=== PATIENT | female | born 1985 | race Caucasian/White ===

== ENCOUNTER 2016-04-09 10:14 | Emergency (ER) | payer OTHER ==
[2016-04-09 11:04] VITALS: BP 136/104
--- NOTE | 2016-04-09 11:06 | UC ---
Ear Complaint HPI - HPI Summary HPI Summary: left ear congested and plugged ---has had sinus discmoft and ear pain for 5 days----is now getting worse - History of Current Complaint Chief Complaint: UCEar Stated Complaint: EAR PAIN PLUGGED Time Seen by Provider: 04/09/16 11:00 Hx Obtained From: Patient Hx Last Menstrual Period: 03/31/16 ?: No Onset/Duration: Lasting Days - 5, Still Present, Worse Since - today Severity Initially: Mild Severity Currently: Moderate Pain Intensity: 5 Pain Scale Used: 0-10 Numeric Aggravating Factors: Nothing - has been trying sudafed (advised to d/c do to increase bp) Alleviating Factors: Nothing Associated Signs/Symptoms: Positive: URI Symptoms - Allergies/Home Medications Allergies/Adverse Reactions: Allergies Allergy/AdvReac Type Severity Reaction Status Date / Time Latex Allergy Intermediate Hives Verified 04/09/16 10:59 PMH/Surg Hx/FS Hx/Imm Hx Previously Healthy: No Endocrine History Of: Denies: Diabetes, Thyroid Disease Cardiovascular History Of: Reports: Hypertension - ONLY DURING Denies: Cardiac Disorders Respiratory History Of: Denies: COPD, Asthma GI/ History Of: Denies: Ulcer Neurological History Of: Reports: Migraine - 4 PER MONTH- TREATS WITH EXCEDRINE MIGRAINE Psychological History Of: Reports: Anxiety - HX OF - NO MEDICATION FOR AT THIS TIME - Surgical History Surgical History: Yes Surgery Procedure, Year, and Place: SCOPING OF BLADDER A CHILD, TUBAL LIGATION - Family History Known Family History: Positive: Cardiac Disease, Hypertension, Diabetes - Social History Occupation: Employed Full-time Lives: With Family Alcohol Use: Occasionally Substance Use Type: None Smoking Status (MU): Former Smoker Amount Used/How Often: 5 CIGARETTES PER DAY X 1 YEAR Have You Smoked in the Last Year: No When Did the Patient Quit Smoking/Using Tobacco: 2-3 YEARS AGO - Immunization History Most Recent Influenza Vaccination: unkown Most Recent Tetanus Shot: 04/04/14 Most Recent Pneumonia Vaccination: none Review of Systems Constitutional: Chills, Fatigue Skin: Negative Eyes: Negative ENT: Ear Ache - left, Nasal Discharge Respiratory: Negative Cardiovascular: Negative Gastrointestinal: Negative Genitourinary: Negative Motor: Negative Neurovascular: Negative Musculoskeletal: Negative Neurological: Negative Psychological: Negative All Other Systems Reviewed And Are Negative: Yes Physical Exam Triage Information Reviewed: Yes Appearance: Well-Appearing, No Pain Distress Vital Signs: Initial Vital Signs Temp 97.9 F 04/09/16 10:59 Pulse 92 04/09/16 10:59 Resp 18 04/09/16 10:59 BP 136/104 04/09/16 10:59 Pulse Ox 99 04/09/16 10:59 Vital Signs Reviewed: Yes Eye Exam: Normal Eyes: Positive: Conjunctiva Clear ENT Exam: Normal ENT: Positive: Normal ENT inspection, Hearing grossly normal, Pharynx normal, Nasal congestion, Nasal drainage, TM dull - left. Negative: Tonsillar swelling , Tonsillar exudate, Trismus, Muffled/hoarse voice Dental Exam: Normal Neck exam: Normal Neck: Positive: Supple, Nontender, No Lymphadenopathy Respiratory Exam: Normal Respiratory: Positive: Chest non-tender, Lungs clear, Normal breath sounds, No respiratory distress, No accessory muscle use Cardiovascular Exam: Normal Cardiovascular: Positive: RRR, No Murmur, Pulses Normal, Brisk Capillary Refill Abdominal Exam: Normal Abdomen Description: Positive: Nontender, No Organomegaly, Soft Bowel Sounds: Positive: Present Musculoskeletal Exam: Normal Musculoskeletal: Positive: Strength Intact, ROM Intact, No Edema Neurological Exam: Normal Neurological: Positive: Alert, Muscle Tone Normal Psychological Exam: Normal Skin Exam: Normal Ear Complaint Course/Dx - Course Course Of Treatment: stop sudafed, flonase, Augmentin, increase fluids follow with pcp - Differential Dx/Diagnosis Differential Diagnosis/HQI/PQRI: Bronchitis, Cellulitis, Mastoiditis, Otitis Externa, Pharyngitis, URI Provider Diagnoses: Serrous otitis media, sinusitis Discharge - Discharge Plan Condition: Stable Disposition: HOME Prescriptions: Amoxicillin/Clavulanate TAB* [Augmentin TAB 875*] 875 mg PO BID #20 tab Fluticasone NASAL SPRAY 50MCG* [Flonase NASAL SPRAY 50MCG*] 2 spray BOTH NARES DAILY #1 btl Patient Education Materials: Sinusitis (ED), Serous Otitis Media (ED) Forms: *Work Release Referrals: Fidelina Seymour MD [Primary Care Provider] - If Needed
== END 2016-04-09 11:12 | disposition home or self-care (01) ==
LOC: UCEAST 10:14
DX: H65.92 Unspecified nonsuppurative otitis media, left ear (principal); J32.9 Chronic sinusitis, unspecified; Z87.891 Personal history of nicotine dependence
CPT/HCPCS: 99212; G0463

== ENCOUNTER 2016-06-19 14:58 | Emergency (ER) | payer OTHER ==
[2016-06-19 16:26] VITALS: BP 173/107
--- NOTE | 2016-06-19 16:36 | UC ---
Throat Pain/Nasal Dudley HPI - HPI Summary HPI Summary: SINUSITIS LAST MONTH; RESOLVED WITH ABX AND FLONASE; HOWEVER FOR LAST FIVE DAYS SYMPTOMS HAVE RETURNED - History of Current Complaint Chief Complaint: UCRespiratory Stated Complaint: SINUS CONGESTION,EAR PAIN Time Seen by Provider: 06/19/16 15:54 Hx Obtained From: Patient Hx Last Menstrual Period: May Onset/Duration: Gradual Onset, Lasting Days, Still Present Severity: Moderate Cough: Nonproductive Associated Signs & Symptoms: Positive: Hoarseness, Sinus Discomfort, Nasal Discharge - Epiglottits Risk Factors Epiglottis Risk Factors: Negative - Allergies/Home Medications Allergies/Adverse Reactions: Allergies Allergy/AdvReac Type Severity Reaction Status Date / Time Latex Allergy Intermediate Hives Verified 04/09/16 10:59 Home Medications: Home Medications Acetaminophen [Tylenol 8 Hour] 650 mg PO 06/19/16 [History] PMH/Surg Hx/FS Hx/Imm Hx Previously Healthy: Yes Endocrine History Of: Denies: Diabetes, Thyroid Disease Cardiovascular History Of: Reports: Hypertension - during Denies: Cardiac Disorders Respiratory History Of: Denies: COPD, Asthma GI/ History Of: Denies: Ulcer Neurological History Of: Reports: Migraine - 4 PER MONTH- TREATS WITH EXCEDRINE MIGRAINE Psychological History Of: Reports: Anxiety - HX OF - NO MEDICATION FOR AT THIS TIME - Surgical History Surgical History: Yes Surgery Procedure, Year, and Place: SCOPING OF BLADDER A CHILD, TUBAL LIGATION - Family History Known Family History: Positive: Cardiac Disease, Hypertension, Diabetes - Social History Occupation: Employed Full-time Lives: With Family Alcohol Use: Occasionally Substance Use Type: None Smoking Status (MU): Former Smoker Amount Used/How Often: 5 CIGARETTES PER DAY X 1 YEAR Have You Smoked in the Last Year: No When Did the Patient Quit Smoking/Using Tobacco: 2-3 YEARS AGO - Immunization History Most Recent Influenza Vaccination: unkown Most Recent Tetanus Shot: 04/04/14 Most Recent Pneumonia Vaccination: none Review of Systems Constitutional: Negative Skin: Negative Eyes: Negative ENT: Negative Respiratory: Negative Cardiovascular: Negative Gastrointestinal: Negative Genitourinary: Negative Motor: Negative Neurovascular: Negative Musculoskeletal: Arthralgia, Myalgia Neurological: Negative Psychological: Negative All Other Systems Reviewed And Are Negative: Yes Physical Exam Triage Information Reviewed: Yes Appearance: Well-Appearing, No Pain Distress, Well-Nourished Vital Signs: Initial Vital Signs Temp 97.4 F 06/19/16 15:35 Pulse 70 06/19/16 15:35 Resp 16 06/19/16 15:35 BP 165/107 06/19/16 15:35 Pulse Ox 100 06/19/16 15:35 Vital Signs Reviewed: Yes Eye Exam: Normal ENT: Positive: Normal ENT inspection, Hearing grossly normal, Nasal congestion, TM bulging, TM dull Dental Exam: Normal Neck exam: Normal Neck: Positive: Supple, Nontender, No Lymphadenopathy Respiratory Exam: Normal Respiratory: Positive: Chest non-tender, Lungs clear, Normal breath sounds, No respiratory distress, No accessory muscle use Cardiovascular Exam: Normal Cardiovascular: Positive: RRR, No Murmur, Pulses Normal Abdominal Exam: Normal Abdomen Description: Positive: Nontender, No Organomegaly Musculoskeletal Exam: Normal Musculoskeletal: Positive: Strength Intact, ROM Intact Neurological Exam: Normal Psychological Exam: Normal Psychological: Positive: Normal Response To Family Skin Exam: Normal Throat Pain/Nasal Course/Dx - Differential Dx/Diagnosis Differential Diagnosis/HQI/PQRI: Influenza, Sinusitis, Tonsillitis, URI Provider Diagnoses: SINUSITIS. HYPERTENSION: WILL FOLLOW UP WITH PCP NEXT WEEK Discharge - Discharge Plan Condition: Stable Disposition: HOME Prescriptions: Amoxicillin/Clavulanate TAB* [Augmentin TAB 875*] 875 mg PO BID #20 tab Fluticasone NASAL SPRAY 50MCG* [Flonase NASAL SPRAY 50MCG*] 2 spray BOTH NARES DAILY #1 btl Patient Education Materials: Sinusitis (ED) Forms: *Work Release Referrals: Fidelina Seymour MD [Primary Care Provider] -
== END 2016-06-19 16:30 | disposition home or self-care (01) ==
LOC: UCEAST 14:58
DX: J32.9 Chronic sinusitis, unspecified (principal); I10 Essential (primary) hypertension; Z87.891 Personal history of nicotine dependence
CPT/HCPCS: 99211; G0463

== ENCOUNTER 2016-07-20 15:54 | Emergency (ER) | payer OTHER ==
[2016-07-20 16:16] VITALS: BP 152/92
--- NOTE | 2016-07-20 16:55 | UC ---
Shoulder Pain HPI - HPI Summary HPI Summary: The patient comes in today for: 1. Right shoulder pain: Onset: 1-2 hours ago. Palliative/provocative: Movement makes it worse. Quality: Ache, burning Region: Right shoulder Severity: 6/10 with movement. No movement: 0/10 Time: Comes and goes. Associated symptoms: Numbness: None. Initially, when she first fell, she was not able to move it at all. It has gotten a bit better. * - History of Current Complaint Chief Complaint: UCUpperExtremity Stated Complaint: SHOULDER,ARM INJURY Time Seen by Provider: 07/20/16 16:47 Hx Obtained From: Patient Hx Last Menstrual Period: 06/28/16 - Allergies/Home Medications Allergies/Adverse Reactions: Allergies Allergy/AdvReac Type Severity Reaction Status Date / Time Latex Allergy Intermediate Hives Verified 04/09/16 10:59 PMH/Surg Hx/FS Hx/Imm Hx Previously Healthy: No Endocrine History Of: Denies: Diabetes, Thyroid Disease, Hyperthyroidism, Hypothyroidism, Dyslipidemia Cardiovascular History Of: Reports: Hypertension - during ; currently being followed by PCP Denies: Cardiac Disorders, Pacemaker/ICD, Myocardial Infarction, Congestive Heart Failure, Atrial Fibrillation, Deep Vein Thrombosis, Bleeding Disorders Respiratory History Of: Reports: Asthma Denies: COPD, Bronchitis, Pneumonia, Pulmonary Embolism GI/ History Of: Denies: Gastroesophageal Reflux, Ulcer, Gastrointestinal Bleed, Gall Bladder Disease, Kidney Stones, Diverticulitis, Renal Disease, Urosepsis Neurological History Of: Reports: Migraine - 4 PER MONTH- TREATS WITH EXCEDRINE MIGRAINE Denies: TIA, CVA, Dementia, Seizures Psychological History Of: Reports: Anxiety - HX OF - NO MEDICATION FOR AT THIS TIME Denies: Depression, Bipolar Disorder, Schizophrenia, Post Traumatic Stress Disorder Cancer History Of: Denies: Lung Cancer, Colorectal Cancer, Breast Cancer, Prostate Cancer, Cervical Cancer Other History Of: Negative For: HIV, Hepatitis B, Hepatitis C, Anticoagulant Therapy - Surgical History Surgical History: Yes Surgery Procedure, Year, and Place: SCOPING OF BLADDER A CHILD, TUBAL LIGATION - Family History Known Family History: Positive: Cardiac Disease, Hypertension, Diabetes - Social History Occupation: Employed Full-time Alcohol Use: Occasionally Substance Use Type: None Smoking Status (MU): Former Smoker Amount Used/How Often: 5 CIGARETTES PER DAY X 1 YEAR Have You Smoked in the Last Year: No When Did the Patient Quit Smoking/Using Tobacco: 2-3 YEARS AGO - Immunization History Most Recent Influenza Vaccination: unkown Most Recent Tetanus Shot: 04/04/14 Most Recent Pneumonia Vaccination: none Review of Systems Constitutional: Negative Skin: Negative Eyes: Negative ENT: Negative Respiratory: Negative Gastrointestinal: Negative Genitourinary: Negative Musculoskeletal: Arthralgia, Myalgia All Other Systems Reviewed And Are Negative: Yes Physical Exam Triage Information Reviewed: Yes Appearance: Well-Appearing, No Pain Distress - when not moving her arm., Obese Vital Signs: Initial Vital Signs Temp 98.7 F 07/20/16 16:11 Pulse 82 07/20/16 16:11 Resp 16 07/20/16 16:11 BP 152/92 07/20/16 16:11 Pulse Ox 99 07/20/16 16:11 Eyes: Positive: Conjunctiva Clear. Negative: Discharge ENT: Positive: Hearing grossly normal. Negative: Pharyngeal erythema, Nasal congestion, Nasal drainage, TM bulging, TM dull, TM red, Tonsillar swelling, Tonsillar exudate Dental: Negative: Gross Decay/Caries @, Dental Fracture @ Neck: Positive: Supple, Nontender, No Lymphadenopathy. Negative: Nuchal Rigidity Respiratory: Positive: Lungs clear, No respiratory distress, No accessory muscle use. Negative: Crackles, Wheezing Cardiovascular: Positive: RRR, No Murmur Abdomen Description: Positive: Nontender, No Organomegaly, Soft. Negative: Distended, Guarding, Peritoneal Signs Musculoskeletal: Positive: No Edema, ROM Limited @, Other: - PUlses (radial) 2+/ 2 x 2. No ecchymosis or distortion of anatomy. There is tenderness with palpation along the clavicle and around the coracoid process. There is limited movement of her arm. No swelling. Neurological: Positive: Alert, Muscle Tone Normal Psychological: Positive: Age Appropriate Behavior, Consolable Skin: Negative: rashes, breakdown Diagnostics - Radiology No standard instances Xray Interpretation: No Acute Changes Radiology Interpretation Completed By: ED Physician Shoulder Course/Dx - Course Course Of Treatment: Patient was told that I did not see any problems. The radiologist has not read it after a time, so the patient was given the option of leaving which she wanted to do. - Differential Dx/Diagnosis Provider Diagnoses: Right shoulder strain. Discharge - Discharge Plan Condition: Stable Disposition: HOME Patient Education Materials: Shoulder Sprain (ED) Referrals: Fidelina Seymour MD [Primary Care Provider] - 1 Week (Please see your primary care provider in a week to see how well you are doing. If you get worse, please be seen sooner in the ER or through us.) Frederick Don MD [Medical Doctor] - Additional Instructions: Please wear the sling while up and around. If tolerated, you may have it off at night when sleeping. Please see your primary care provider next week to see how well you are doing. IF you get worse, please be seen again by us or the ER. IF you need an orthopedic surgeon referral, please contact the patient listed.
--- NOTE | 2016-07-20 18:16 | RAD ---
Indication: Right shoulder pain after fall. 3 views of the right shoulder demonstrates AC joint widening. Possibility of AC joint separation should be considered. The humeral head is otherwise unremarkable with no fracture. IMPRESSION: Findings suggestive of AC joint separation without fracture.
--- NOTE | 2016-07-20 18:17 | RAD ---
Indication: Clavicle injury. 2 views of the right clavicle demonstrates AC joint separation. No definite fracture of the clavicle is identified however. IMPRESSION: No fracture of the right clavicle is noted. AC joint separation is present.
== END 2016-07-20 18:11 | disposition home or self-care (01) ==
LOC: UCEAST 15:54
DX: S46.811A Strain of other muscles, fascia and tendons at shoulder and upper arm level, right arm, initial encounter (principal); W18.30XA Fall on same level, unspecified, initial encounter; F17.290 Nicotine dependence, other tobacco product, uncomplicated
CPT/HCPCS: 99212; G0463

== ENCOUNTER 2017-08-29 10:18 | Emergency (ER) | payer SELFPAY ==
[2017-08-29 10:32] VITALS: BP 142/90
--- NOTE | 2017-08-29 10:58 | UC ---
Garcia Escobedo Angela, scribed for Gabriel Kraft MD on 08/29/17 at 1033 . Ear Complaint HPI - HPI Summary HPI Summary: This pt is a 32 y/o female presenting to [facility] c/o bilateral ear pain today. Pt reports she woke up at 03:00 this morning with left ear pain. She states that her pain has worsened and now has bilateral ear pain. Denies ear discharge, hearing loss, foreign body sensation, or trauma to her ears. Pt has tried over the counter ear drops and netti pot without relief. PMHx: HTN. - History of Current Complaint Stated Complaint: EAR PAIN Time Seen by Provider: 08/29/17 10:21 Hx Obtained From: Patient Hx Last Menstrual Period: 08/15/17 Onset/Duration: Lasting Hours, Still Present Severity Currently: Severe Pain Intensity: 8 Pain Scale Used: 0-10 Numeric Aggravating Factors: Nothing Alleviating Factors: Nothing Associated Signs/Symptoms: Negative: Discharge, Hearing Loss, Foreign Body Sensation, Trauma to Ear - Allergies/Home Medications Allergies/Adverse Reactions: Allergies Allergy/AdvReac Type Severity Reaction Status Date / Time latex Allergy Hives Verified 08/29/17 10:26 Latex, Natural Rubber Allergy Hives Verified 08/29/17 10:26 Home Medications: Home Medications Ibuprofen TAB* [Advil TAB*] 400 mg PO Q6HR PRN 08/29/17 [History Confirmed 08/29] hydroCHLOROthiazide [Hydrochlorothiazide] 1 tab PO DAILY 08/29/17 [History Confirmed 08/29/17] PMH/Surg Hx/FS Hx/Imm Hx Other Endocrine History: DENIES: diabetes Cardiovascular History: Hypertension Other History Of: Negative For: HIV, Hepatitis B, Hepatitis C, Anticoagulant Therapy - Surgical History Surgical History: Yes Surgery Procedure, Year, and Place: SCOPING OF BLADDER A CHILD, TUBAL LIGATION - Family History Known Family History: Positive: Cardiac Disease, Hypertension, Diabetes - Social History Alcohol Use: Occasionally Substance Use Type: None Smoking Status (MU): Former Smoker Amount Used/How Often: 5 CIGARETTES PER DAY X 1 YEAR Have You Smoked in the Last Year: No When Did the Patient Quit Smoking/Using Tobacco: 2-3 YEARS AGO - Immunization History Most Recent Influenza Vaccination: fall 2016 Most Recent Tetanus Shot: 04/04/14 Most Recent Pneumonia Vaccination: none Review of Systems Constitutional: Negative Skin: Negative Eyes: Negative ENT: Ear Ache - bilateral Respiratory: Negative Cardiovascular: Negative Gastrointestinal: Negative Genitourinary: Negative Motor: Negative Neurovascular: Negative Musculoskeletal: Negative Neurological: Negative Psychological: Negative Is Patient Immunocompromised?: No All Other Systems Reviewed And Are Negative: Yes Physical Exam - Summary Physical Exam Summary: VITAL SIGNS: Reviewed. GENERAL: Patient is a well-developed and nourished female who is lying comfortable in the stretcher. Patient is not in any acute respiratory distress. HEAD AND FACE: Normocephalic EYES: PERRLA, EOMI x 2. EARS: Hearing grossly intact. Bilateral tympanic membranes with erythema and bulging. MOUTH: Oropharynx within normal limits. NECK: Supple, trachea is midline, no adenopathy, no JVD, no carotid bruit. CHEST: Symmetric, no tenderness at palpation LUNGS: Clear to auscultation bilaterally. No wheezing or crackles. CVS: Regular rate and rhythm, S1 and S2 present, no murmurs or gallops appreciated. ABDOMEN: Soft, non-tender. Bowel sounds are normal. No abdominal abnormal pulsations. EXTREMITIES: Full ROM in all major joints, no edema, no cyanosis or clubbing. NEURO: Alert and oriented x 3. No acute neurological deficits. Speech is normal and follows commands. SKIN: Dry and warm Triage Information Reviewed: Yes Vital Signs: Initial Vital Signs Temp 98.3 F 08/29/17 10:28 Pulse 87 08/29/17 10:28 Resp 18 08/29/17 10:28 BP 142/90 08/29/17 10:28 Pulse Ox 97 08/29/17 10:28 Vital Signs Reviewed: Yes Ear Complaint Course/Dx - Course Course Of Treatment: The patient seems to have a bilateral otitis media. The patient was given ciprofloxacin otic and discharged home with follow-up with PCP. I discussed all the findings and test results with the patient and Patient was instructed to return to the UC or go to the ED if develops any fever, increase sore throat unable to swallow, drooling, unable to open their mouth, or any other symptoms. The patient understands and agrees. Plan of care was discussed with the patient and understands and agrees. All questions were answered at patient satisfaction. There were no further complaints or concerns. Patient is A + O X 3. hemodynamically stable. The patient was found to have increased blood pressure in UC. The patient will follow up with PCP for better control of BP. - Differential Dx/Diagnosis Differential Diagnosis/HQI/PQRI: Cerumen Impaction, Otitis Externa, Otitis Media Provider Diagnoses: Otitis media Discharge - Sign-Out/Discharge Documenting (check all that apply): Discharge/Admit/Transfer - Discharge - Discharge Plan Condition: Stable Disposition: HOME Prescriptions: Ciproflox/Dexameth OTIC.SUSP* [Ciprodex OTIC.SUSP*] 1 drop .SEE ORDER Q12H #1 btl Patient Education Materials: Ear Infection (ED) Forms: *Work Release Referrals: Fidelina Seymour MD [Primary Care Provider] - Additional Instructions: FOLLOW UP WITH YOUR PRIMARY CARE PROVIDER WITHIN ONE WEEK FOR HIGH BLOOD PRESSURE NOTED TODAY. RETURN TO URGENT CARE OR THE ED FOR ANY WORSENING OR NEW SYMPTOMS. - Billing Disposition and Condition Condition: STABLE Disposition: HOME The documentation as recorded by the Garcia sterling Angela accurately reflects the service I personally performed and the decisions made by Swapnil okeefe Walter, MD.
== END 2017-08-29 10:42 | disposition home or self-care (01) ==
LOC: UCEAST 10:18
DX: H66.93 Otitis media, unspecified, bilateral (principal); I10 Essential (primary) hypertension; Z91.040 Latex allergy status; Z82.49 Family history of ischemic heart disease and other diseases of the circulatory system; Z83.3 Family history of diabetes mellitus; Z87.891 Personal history of nicotine dependence
CPT/HCPCS: 99212; G0463

== ENCOUNTER 2017-09-10 10:39 | Emergency (ER) | payer OTHER ==
--- OUTSIDE RECORDS SUMMARY | 2017-09-10 10:48 | XMS REPORT ---
:1985 External Reference #:[id number] Author Organization [facility] Address [address] [place] [address] Phone [phone] Care Team Providers Name Role Phone Fidelina Seymour M.D. Care Team Information Architectural Drafter Unavailable Fidelina Seymour M.D. Primary Care Physician Unavailable Payers Type Date Identification Numbers Payment Provider Subscriber Medicaid Effective: Policy Number: [id number] [facility] Krissy Aguiarup 2014 PayID: [id number] [address] [address] [place] [address] Problems Date Description Provider Status Onset: 09/24/2016 Essential hypertension Fidelina Seymour M.D. Active Onset: 09/24/2016 Impaired fasting glycaemia Fidelina Seymour M.D. Active Family History Date Family Member(s) Problem(s) Comments General No immediate family members with early CA or CVA. No immediate family history of colon, breast, ovarian, cervical or prostate cancer. Father Cluster headache Father Hypertension Mother Anxiety Mother Asthma Mother Depression Mother Hypertension First Son Deafness First Sister No Current Problems Paternal Grandfather Stroke Social History Type Date Description Comments Marital Status Patient is single Living Situation Lives with children Diet Diet is healthy and well balanced Cigarette Use Nonsmoker Cigarette Use Former Cigarette Smoker 18-23 years, smoked 1/2ppd ETOH Use Occasional Recreational Drug Use Denies Drug Use Smoking Patient is a former smoker Daily Caffeine Some Caffeine Exercise Type/Frequency walks regularly, 30 min Current cardio Allergies, Adverse Reactions, Alerts Date Description Reaction Status Severity Comments 09/24/2016 NKDA active 02/07/2015 Latex active Medications Medication Date Status Form Strength Qnty SIG Indications Ordering Provider Note 08/31 Hx pt was J06.9 Amira seen here Estrella, Cristine today for Afnp-C 09/01 uri and /2017 ear infection Amoxicillin 08/31 Hx Tablets 500mg 30tab 1 by H66.93 s mouth [facility], - three Afnp-C 09/10 times day Hydrochlorothiazi 07/01 Active Capsules 12.5mg 30cap 1 by I10 s mouth Amlin, every day M.D. Neomycin-Polymyxi Active Solution 1% 2 qtts in Unknown n-HC /0000 affected ear four times a day until sx resolve Blood Pressure 09/24 Hx take I10 Fidelina Cuff blood Amlin, - pressure M.D. 08/30 daily No Active 06/20 Hx Fidelina Medications Amlin, - M.D. 09/24 Cyclobenzaprine 04/13 Hx Tablets 5mg 30tab 03/31-1 M54.2 Fidelina HCL s tablet Amlin, - every M.D. 06/20 night at bedtime as needed Norgestim-Eth 02/07 Hx Tablets 0.18/0.21 3tabs Fidelina Estrad Triphasic 5/0.25 Amlin, - mg-35 mcg M.D. 06/20 Promethazine 01/16 Hx Tablets 25mg 0tabs 1 PO Q 4-6 [facility] 11/13 Of Cortisporin Otic 01/16 Hx Suspension 5mg;52705 1Bott 3-4 gtts 380.10 U;10mg/ML le into L Manisha, - ear tid x Afnp-C 01/21 Zoloft 10/21 Hx Tablets [facility] 02/07 Immunizations CPT Code Status Date Vaccine Lot # [id number] Given 02/01/2016 Influenza vac quadrivalent preservative free 3yrs and up [id number] Given 11/13/2009 Meningococcal Conjugate Vaccine,Serogroups For [id number] Intramuscular Use 18131 Given 11/13/2009 Tdap Tetanus, W Pertussis [id number] Vital Signs Date Vital Result Comment 08/31/2017 BP Systolic 140 mmHg BP Diastolic 92 mmHg Heart Rate 90 /min Body Temperature 97.7 F Height 62.5 inches 5'2.50" Weight 230.00 lb BMI (Body Mass Index) 41.4 kg/m2 07/01/2017 BP Systolic 140 mmHg BP Diastolic 90 mmHg Heart Rate 80 /min Body Temperature 98.4 F Weight 241.25 lb 02/04/2017 BP Systolic 128 mmHg BP Diastolic 78 mmHg Heart Rate 72 /min Body Temperature 98.6 F Height 62.5 inches 5'2.50" Weight 239.00 lb BMI (Body Mass Index) 43.0 kg/m2 09/24/2016 BP Systolic 142 mmHg BP Diastolic 92 mmHg BP Systolic Recheck 130 mmHg BP Diastolic Recheck 80 mmHg Heart Rate 78 /min Body Temperature 97.5 F Height 62.5 inches 5'2.50" Weight 231.50 lb BMI (Body Mass Index) 41.7 kg/m2 06/20/2016 BP Systolic 144 mmHg BP Diastolic 90 mmHg Heart Rate 80 /min Body Temperature 98.6 F Respiratory Rate 20 /min Height 62.5 inches 5'2.50" Weight 246.00 lb BMI (Body Mass Index) 44.3 kg/m2 04/13/2015 BP Systolic 142 mmHg BP Diastolic 80 mmHg Heart Rate 84 /min Body Temperature 98.4 F Respiratory Rate 16 /min Height 62.5 inches 5'2.50" Weight 229.00 lb BMI (Body Mass Index) 41.2 kg/m2 02/07/2015 BP Systolic 128 mmHg BP Diastolic 78 mmHg Heart Rate 84 /min Body Temperature 99.3 F Respiratory Rate 16 /min Height 62.5 inches 5'2.50" Weight 228.00 lb BMI (Body Mass Index) 41.0 kg/m2 11/13/2009 BP Systolic 110 mmHg BP Diastolic 72 mmHg Heart Rate 88 /min Height 62.75 inches 5'2.75" Weight 156.00 lb BMI (Body Mass Index) 27.9 kg/m2 01/16/2006 BP Systolic 100 mmHg BP Diastolic 60 mmHg Heart Rate 66 /min Body Temperature 98.7 F Weight 150.00 lb 10/21/2005 BP Systolic 110 mmHg BP Diastolic 80 mmHg Heart Rate 80 /min Body Temperature 98.8 F Height 62.75 inches 5'2.75" Weight 152.00 lb BMI (Body Mass Index) 27.1 kg/m2 Results Test Date Test Result H/L Range Note Laboratory test finding 07/01/2017 Cytology Thinprep SEE RESULT BELOW 1 w/rfx(cmc) Comprehensive Metabolic 05/06/2017 Sodium 138 mEq/L 134-149 Prof Potassium 4.1 mEq/L 3.6-5.5 Chloride 104 mEq/L 94-112 Carbon Dioxide 23 mEq/L 21-32 Glucose 113 mg/dL High 70-105 2 BUN 12 mg/dL 6-26 Creatinine 0.6 mg/dL 0.6-1.4 BUN/Creat Ratio 20.0 CALC 8.0-36.0 Calcium 8.6 mg/dL 8.6-10.2 Total Protein 6.5 g/dL 6.4-8.3 Albumin 4.3 g/dL 3.8-5.5 Globulin 2.2 g/dL 2.0-4.8 A/G Ratio 2.0 CALC 0.6-2.3 Alk. Phosphatase 71 U/L 30-110 Alt (SGPT) 33 U/L 7-35 Ast (Sgot) 25 U/L 5-34 Total Bilirubin 0.4 mg/dL 0.2-1.3 GFR Non- >60 ml/min/1.73m^ >=60 GFR >60 ml/min/1.73m^ >=60 Lipid Profile 05/06/2017 Cholesterol 129 mg/dL 120-200 Triglycerides 109 mg/dL 30-200 HDL Cholesterol 21 mg/dL Low 30-85 3 LDL (Calculated) 86 CALC 0-129 VLDL Cholesterol 22 mg/dL 0-50 HDL Risk Factor 6.1 CALC High 0.0-4.4 Complete Blood Count 05/06/2017 WBC 8.7 x10^3/UL 3.6-9.6 RBC 4.92 x10^6/UL 3.90-5.70 HGB 12.6 g/dL 12.1-17.2 HCT 39 % 36-50 MCV 79.0 fL Low 82.2-97.4 MCH 25.6 pg Low 27.6-33.3 MCHC 32.6 g/dL Low 33.0-35.5 RDW 16.4 % High 11.6-13.7 PLT 269 x10^3/UL 150-400 MPV 7.6 fL 7.4-10.4 Gran # 6.0 x10^3/UL 1.5-7.2 Lymph# 2.3 x10^3/UL 0.7-4.9 Major# 0.4 x10^3/UL 0.1-0.9 Gran % 68.8 % 42.2-75.2 Lymph % 26.5 % 20.5-51.1 Major% 4.7 % 1.7-9.3 Laboratory test finding 05/06/2017 Hemoglobin A1c (Fma) 5.5 % % 4.1-5.7 Comprehensive Metabolic Prof 06/23/2016 Sodium 142 mEq/L 134-149 Potassium 4.7 mEq/L 3.6-5.5 Chloride 105 mEq/L 94-112 Carbon Dioxide 24 mEq/L 21-32 Glucose 114 mg/dL High 70-105 4 BUN 15 mg/dL 6-26 Creatinine 0.7 mg/dL 0.6-1.4 BUN/Creat Ratio 21.4 CALC 8.0-36.0 Calcium 9.0 mg/dL 8.6-10.2 Total Protein 6.7 g/dL 6.4-8.3 Albumin 4.2 g/dL 3.8-5.5 Globulin 2.5 g/dL 2.0-4.8 A/G Ratio 1.7 CALC 0.6-2.3 Alk. Phosphatase 78 U/L 30-110 Alt (SGPT) 38 U/L High 7-35 5 Ast (Sgot) 28 U/L 5-34 Total Bilirubin 0.5 mg/dL 0.2-1.3 GFR Non- >60 ml/min/1.73m^ >=60 GFR >60 ml/min/1.73m^ >=60 Lipid Profile 06/23/2016 Cholesterol 131 mg/dL 120-200 Triglycerides 172 mg/dL 30-200 HDL Cholesterol 24 mg/dL Low 30-85 LDL (Calculated) 73 CALC 0-129 VLDL Cholesterol 34 mg/dL 0-50 HDL Risk Factor 5.5 CALC High 0.0-4.4 Laboratory test finding 06/23/2016 TSH 3.22 mIU/L 0.50-6.00 Complete Blood Count 06/23/2016 WBC 8.0 x10^3/UL 3.6-9.6 RBC 5.33 x10^6/UL 3.90-5.70 HGB 13.9 g/dL 12.1-17.2 HCT 43 % 36-50 MCV 80.0 fL Low 82.2-97.4 6 MCH 26.0 pg Low 27.6-33.3 7 MCHC 32.5 g/dL Low 33.0-35.5 8 RDW 16.0 % High 11.6-13.7 PLT 275 x10^3/UL 150-400 MPV 6.9 fL Low 7.4-10.4 Gran # 5.5 x10^3/UL 1.5-7.2 Lymph# 2.1 x10^3/UL 0.7-4.9 Major# 0.4 x10^3/UL 0.1-0.9 Gran % 68.2 % 42.2-75.2 Lymph % 26.3 % 20.5-51.1 Major% 5.5 % 1.7-9.3 Laboratory test 06/23/2016 Hemoglobin A1c (Fma) 5.4 % 4.1-5.7 finding Laboratory test 01/16/2006 Throat - Beta Strep NEGATIVE @ 48 HRS finding Fma Ua - Micro ([facility]) 01/16/2006 Appearance SL CLOUDY Color YELLOW Glucose NEG Bilirubin ICTO NEG Ketones NEG SP Grav >=1.030 Blood NEG LMP 01/04/06 PH 5.0 Protein, Random Urine SSA NEG Urobil 0.2 Nitrite NEG Leukocytes (Fma/CMC/Centrex) TRACE Hyaline - /Lpf Granular - /Lpf WBC, Fluid 3-5 RBC, Fluid 1-3 Mucus LG AMT /Lpf Epith LG AMT /Lpf Bacteria 2+ /Hpf Amorphous - /Lpf Crystals, Urine (Fma/CMC/CTX) - /Lpf Misc NOT A CLEAN CATCH Ua - Micro ([facility]) 10/21/2005 Appearance CLEAR Color YELLOW Glucose NEG Bilirubin ICTO NEG Ketones 40 SP Grav >=1.030 Blood NEG PH 5.5 Protein, Random Urine SSA TRACE Urobil 1.0 Nitrite NEG Leukocytes (Fma/CMC/Centrex) SMALL Hyaline - /Lpf Granular - /Lpf WBC, Fluid 30-40 SOME CLUMPED RBC, Fluid 3-5 Mucus SM AMT /Lpf Epith MOD AMT /Lpf Bacteria 3+ /Hpf Amorphous SMA AMT /Lpf Crystals, Urine (Fma/CMC/CTX) - /Lpf Z#Comments LMP EARLY AUGUST Urine (a) 10/21/2005 SP Grav >=1.030 Urine, (Fma/CMC/CTX) POSITIVE 1 SEE RESULT BELOW Name: KRISSY BRADLEY : [address]: Fidelina Seymour MD Acct: [id number] Unit: [id number] AGE: 32 Location: [facility] Re07/01/17 SEX: F Status: REG REF SPEC: [id number] ALEXANDER: 07/01/17-[address] [facility] [address]: Fidelina Seymour MD REQ: [id number] RECD: 07/01/17 STATUS: SOUT _ ORDERED: TP IMAGE ANAL, HPV/Thin Prep, HPV 16/18 GENE COMMENTS: [id number] Negative for Intraepithelial lesion or Malignancy A. Ectocervical/Endocervical Specimen Adequacy: Satisfactory of evaluation Transformation zone component identified Patient Information: HPV: High risk HPV RNA testing regardless of pap results. HPV 16/18 Genotype Reflex Actual Specimen Date: 07/01/17 LMP If Unknown: Last Menstrual Period Not Given. Spec Date if unknown: 2014 Previous Abnormal Pap Smears?:N Date Time Test Result Flag (u) Normal Range 07/01/17 1012 @ HPV RNA RFLX GE Negative Negative @ @ The high-risk HPV types detected by the assay include: 16, @ 18, 31, 33, 35, 39, 45, 51, 52, 56, 58, 59, 66, and 68. Signed (signature on file) DAVE Romero (ASCP) 07/03 1100 This Pap test was evaluated with the assistance of the [employer] Test Imaging System. Due to cytologic findings at the junior art director microscope, comprehensive manual rescreening by a Delivery Architect may be required. The Pap Smear is a screening test designed to aid in the detection of premalignant and malignant conditions of the uterine cervix. It is not a diagnostic procedure and should not be used as the sole means of detecting cervical cancer. Both false- positive and false- negative reports do occur. Depending on your risk status, a Pap smear should be obtained and evaluated every 1-3 years. END OF REPORT DEPARTMENT OF PATHOLOGY, [address] [place] [address] Elvis Ervin M.D. Director [facility] # [id number] 2 consistent w/ previous results 3 consistent w/ previous results 4 RESULTS VERIFIED BY REPEAT ANALYSIS 5 RESULTS VERIFIED BY REPEAT ANALYSIS 6 RESULTS VERIFIED BY REPEAT ANALYSIS 7 RESULTS VERIFIED BY REPEAT ANALYSIS 8 RESULTS VERIFIED BY REPEAT ANALYSIS Procedures Description No Information Encounters Type Date Location Provider CPT E/M Dx Office Visit 07/01/2017 9:20a [facility] Office Fidelina Seymour M.D. 76693 I10 R73.01 E66.9 Z00.01 K42.9 M25.561 Office Visit 09/24/2016 8:40a [facility] Office Fidelina Seymour M.D. 20279 R73.01 I10 E66.9 Office Visit 06/20/2016 11:40a [facility] Office Fidelina Seymour M.D. 17736 R03.0 E66.9 Office Visit 04/13/2015 10:00a [facility] Office Fidelina Seymour M.D. 94609 G43.009 M54.2 Office Visit 02/07/2015 2:30p [facility] Office Fidelina Seymour M.D. 53434 K42.0 E66.09 G43.009 Z00.01 Office Visit 11/13/2009 3:00p [facility] Office Marichuy Robles 15188 300.00 Office Visit 01/16/2006 10:45a [facility] Office Graciela DyerLashawn-Nilsa 27138 380.10 536.2 Office Visit 10/21/2005 9:00a [facility] Office Marichuy Robles 84162 787.01 V72.42 Plan of Care Future Appointment(s):10/06/2017 10:40 am - Fidelina Seymour M.D. at [facility] Tpdpsk2808/31/2017 - Lashawn Robles-CJ06.9 Acute upper respiratory infection, unspecifiedNew Medication:NoteH66.93 Otitis media, unspecified, bilateralNew Medication:Amoxicillin 500 mgAllComments:~B_~U_Medication Management~b_~u_ Patient Understands medications she's taking? Yes No Are there Barriers to Adherence? Yes No Has the patient been asked about herbal supplements and therapies, and OTC meds? Yes No ~B_~U_Care Plan~b_~u_1. Patient has been queried about patient's goals/preferences and functional/lifestyle goals at relevant visits. If relevant, describe: na2. Treatment goals as explained to the patient: aboveresolution of sx 3. Are there barriers to meeting treatment goals? Yes No If Yes, please describe:4. Self-Management goals as describedto the patient: Yes No continue sx management , ok to try afrin x 3 days , fluids and vapor callif no better with amoxl in 3 days of if sx worsen
[2017-09-10 10:51] VITALS: BP 138/93
--- NOTE | 2017-09-10 11:18 | ED ---
Throat Pain/Nasal Congestion - HPI Summary HPI Summary: 32-year-old female presents with pressure behind her ears for the past 2 weeks. States that a week ago she was diagnosed with otitis media and has been completing her antibiotic. She has been on an oral and a topical antibiotic. She states the pain has has disappeared a couple days ago it is just the pressure left. States she is on Flonase. She admits to sinus congestion. She also admits to some ringing in her ears. She states she is dizzy occasionally that is worse with positional changes. She denies any chest pain or shortness of breath. She admits to occasional headache. She denies any fevers. She denies any cough. <Yoly Siu - Last Filed: 09/10/17 11:27> <Kim Mccracken - Last Filed: 09/10/17 13:40> - History of Current Complaint Chief Complaint: UCEar Time Seen by Provider: 09/10/17 11:06 - Allergies/Home Medications Allergies/Adverse Reactions: Allergies Allergy/AdvReac Type Severity Reaction Status Date / Time latex Allergy Hives Verified 09/10/17 10:52 Latex, Natural Rubber Allergy Hives Verified 09/10/17 10:52 PMH/Surg Hx/FS Hx/Imm Hx Endocrine/Hematology History: Denies: Hx Anticoagulant Therapy, Hx Diabetes, Hx Thyroid Disease Cardiovascular History: Reports: Hx Hypertension Denies: Hx Congestive Heart Failure, Hx Deep Vein Thrombosis, Hx Myocardial Infarction, Hx Pacemaker/ICD Respiratory History: Denies: Hx Asthma, Hx Chronic Obstructive Pulmonary Disease (COPD), Hx Lung Cancer, Hx Pneumonia, Hx Pulmonary Embolism GI History: Denies: Hx Gall Bladder Disease, Hx Gastrointestinal Bleed, Hx Ulcer, Hx Urosepsis History: Reports: Other Problems/Disorders - [facility] all summer Denies: Hx Kidney Stones, Hx Renal Disease Sensory History: Reports: Hx Contacts or Glasses - GLASSES Denies: Hx Hearing Aid Opthamlomology History: Reports: Hx Contacts or Glasses - GLASSES Neurological History: Reports: Hx Migraine - 4 PER MONTH- TREATS WITH EXCEDRINE MIGRAINE Denies: Hx Dementia, Hx Seizures, Hx Transient Ischemic Attacks (TIA) Psychiatric History: Reports: Hx Anxiety - HX OF - NO MEDICATION FOR AT THIS TIME Denies: Hx Depression, Hx Schizophrenia, Hx Bipolar Disorder - Surgical History Surgery Procedure, Year, and Place: SCOPING OF BLADDER A CHILD, TUBAL LIGATION Hx Anesthesia Reactions: No - Immunization History Date of Influenza Vaccine: 2012 Infectious Disease History: No Infectious Disease History: Reports: Hx Shingles Denies: Hx Clostridium Difficile, Hx Hepatitis, Hx Human Immunodeficiency Virus (HIV), Hx of Known/Suspected MRSA, Hx Tuberculosis, Hx Known/Suspected VRE , Hx Known/Suspected VRSA, History Other Infectious Disease, Traveled Outside the [place] in Last 30 Days - Family History Known Family History: Positive: Cardiac Disease, Hypertension, Diabetes - Social History Alcohol Use: Occasionally Substance Use Type: Reports: None Smoking Status (MU): Former Smoker Amount Used/How Often: 5 CIGARETTES PER DAY X 1 YEAR Have You Smoked in the Last Year: No <Yoly Siu - Last Filed: 09/10/17 11:27> Review of Systems Negative: Fever Positive: Ear Ache, Nasal Discharge Negative: Chest Pain Negative: Shortness Of Breath Neurological: Other - dizziness All Other Systems Reviewed And Are Negative: Yes <Yoly Siu - Last Filed: 09/10/17 11:27> Physical Exam Triage Information Reviewed: Yes Vital Signs On Initial Exam: Initial Vitals Temp Pulse Resp BP Pulse Ox 98 F 74 16 138/93 100 09/10/17 10:48 09/10/17 10:48 09/10/17 10:48 09/10/17 10:48 09/10/17 10:48 Vital Signs Reviewed: Yes Appearance: Positive: Well-Appearing Skin: Positive: Warm, Dry Head/Face: Positive: Normal Head/Face Inspection Eyes: Positive: Normal, EOMI, JACINTO, Conjunctiva Clear ENT: Positive: Pharynx normal, Nasal congestion, Nasal drainage, TM dull - with fluid behind, Other - TM canal normal Neck: Positive: Supple, Nontender, No Lymphadenopathy Respiratory/Lung Sounds: Positive: Clear to Auscultation, Breath Sounds Present Cardiovascular: Positive: Normal, RRR Abdomen Description: Positive: Nontender, Soft Bowel Sounds: Positive: Present Musculoskeletal: Positive: Normal Neurological: Positive: Normal Psychiatric: Positive: Normal <Yoly Siu - Last Filed: 09/10/17 11:27> Vital Signs On Initial Exam: Initial Vitals Temp Pulse Resp BP Pulse Ox 98 F 74 16 138/93 100 09/10/17 10:48 09/10/17 10:48 09/10/17 10:48 09/10/17 10:48 09/10/17 10:48 <Kim Mccracken - Last Filed: 09/10/17 13:40> Diagnostics - Vital Signs Vital Signs Temp Pulse Resp BP Pulse Ox 09/10/17 10:48 98 F 74 16 138/93 100 <Yoly Siu - Last Filed: 09/10/17 11:27> - Vital Signs Vital Signs Temp Pulse Resp BP Pulse Ox 09/10/17 10:48 98 F 74 16 138/93 100 <Kim Mccracken - Last Filed: 09/10/17 13:40> EENT Course/Dx - Course Course Of Treatment: 32-year-old female presents with pressure behind her ears for the past 2 weeks. States that a week ago she was diagnosed with otitis media and has been completing her antibiotic. She has been on an oral and a topical antibiotic. She states the pain has has disappeared a couple days ago it is just the pressure left. States she is on Flonase. She admits to sinus congestion. She also admits to some ringing in her ears. She states she is dizzy occasionally that is worse with positional changes. She denies any chest pain or shortness of breath. She admits to occasional headache. She denies any fevers. She denies any cough. on exam fluids behind TM. sinus congestion present. pharynx normal. likely has Euscharian tube dysfunction so will try a oral steriod and have follow up with ENT if no improvement. patient has dx of htn and can follow up with primary about such. patient understand and agrees with plan. - Differential Diagnoses Differential Diagnoses: Otitis Externa, Otitis Media, Sinusitis <Yoly Siu - Last Filed: 09/10/17 11:27> <Kim Mccracken - Last Filed: 09/10/17 13:40> - Diagnoses Provider Diagnoses: Fluid level behind tympanic membrane, Hypertension Discharge - Sign-Out/Discharge Documenting (check all that apply): Discharge/Admit/Transfer - Billing Disposition and Condition Condition: GOOD Disposition: Home <Yoly Siu - Last Filed: 09/10/17 11:27> - Billing Disposition and Condition Condition: GOOD Disposition: Home <Kim Mccracken - Last Filed: 09/10/17 13:40> - Discharge Plan Condition: Good Disposition: HOME Prescriptions: predniSONE TAB* [Deltasone 20 MG TAB*] 40 mg PO DAILY #10 tab Patient Education Materials: Allergic Rhinitis (ED) Forms: *Work Release Referrals: Fidelina Seymour MD [Primary Care Provider] - Ishaan Ronquillo MD [Medical Doctor] - Additional Instructions: Continue chewing gum Finish up antibiotics Continue flonase and allergy medication such as zytrec, add on sudafed at night Take steroid once a day for 5 days Follow up with ENT Return to ED if develop any new or worsening symptoms Attestation Statement User Type: Provider - I was available for consult. This patient was seen by the NANCY. The patient was not presented to, seen by, or examined by me. -Nae <Kim Mccracken - Last Filed: 09/10/17 13:40>
== END 2017-09-10 11:22 | disposition home or self-care (01) ==
LOC: UCEAST 10:39
DX: H73.893 Other specified disorders of tympanic membrane, bilateral (principal); I10 Essential (primary) hypertension; Z91.040 Latex allergy status; Z87.891 Personal history of nicotine dependence
CPT/HCPCS: 99212; G0463

== ENCOUNTER 2017-12-21 09:21 | Emergency (ER) | payer MEDICAID, OTHER ==
[2017-12-21 09:40] VITALS: BP 152/95
--- NOTE | 2017-12-21 09:55 | UC ---
Knee Pain HPI - HPI Summary HPI Summary: 32 y/.o female with PMH + for HTN, c/o R knee pain. ~ 2 [address], + pain, difficulty walking for a few days, resolved but cntinues to have pain with weather changes, walking/ standing long time or walking up/ down stairs. no popping/ catching, clicking. + swelling to lateral anterior knee at tib plat. - History of Current Complaint Chief Complaint: UCLowerExtremity Stated Complaint: R LEG PAIN Time Seen by Provider: 12/21/17 09:43 Hx Obtained From: Patient Hx Last Menstrual Period: 12/14/17 ?: No Onset/Duration: Gradual Onset Pain Intensity: 4 - Allergies/Home Medications Allergies/Adverse Reactions: Allergies Allergy/AdvReac Type Severity Reaction Status Date / Time latex Allergy Hives Verified 12/21/17 09:41 Latex, Natural Rubber Allergy Hives Verified 12/21/17 09:41 PMH/Surg Hx/FS Hx/Imm Hx Other History Of: Negative For: HIV, Hepatitis B, Hepatitis C, Anticoagulant Therapy - Surgical History Surgical History: Yes Surgery Procedure, Year, and Place: SCOPING OF BLADDER A CHILD, TUBAL LIGATION - Family History Known Family History: Positive: Cardiac Disease, Hypertension, Diabetes - Social History Alcohol Use: Occasionally Substance Use Type: None Smoking Status (MU): Former Smoker Amount Used/How Often: 5 CIGARETTES PER DAY X 1 YEAR Have You Smoked in the Last Year: No When Did the Patient Quit Smoking/Using Tobacco: 2-3 YEARS AGO - Immunization History Most Recent Influenza Vaccination: fall 2016 Most Recent Tetanus Shot: 04/04/14 Most Recent Pneumonia Vaccination: none Physical Exam Vital Signs: Initial Vital Signs Temp 98 F 12/21/17 09:37 Pulse 86 12/21/17 09:37 Resp 16 12/21/17 09:37 BP 152/95 12/21/17 09:37 Pulse Ox 100 12/21/17 09:37 Knee Pain Course/Dx - Course Course Of Treatment: R knee pain, no instability, chronic condition. referral to ortho given. - Differential Dx/Diagnosis Differential Diagnosis/HQI/PQRI: Infection, Sprain, Tendonitis Provider Diagnoses: R knee osteoarthritis, patellofemoral syndrome. Discharge - Sign-Out/Discharge Documenting (check all that apply): Patient Departure All imaging exams completed and their final reports reviewed: No Studies - Discharge Plan Condition: Good Disposition: HOME Prescriptions: Meloxicam 7.5 mg PO Q24HR #10 tablet Patient Education Materials: Patellofemoral Pain Syndrome (ED), Meloxicam (By mouth) Referrals: Fidelina Seymour MD [Primary Care Provider] - Additional Instructions: - do not take meloxicam with ibuprofen - follow up with orthopedics, they will call for appointment within 24 hours - increase rest, elevation, ice - meloxicam daily as needed for pain - Billing Disposition and Condition Condition: GOOD Disposition: Home
== END 2017-12-21 10:23 | disposition home or self-care (01) ==
LOC: UCEAST 09:21
DX: M25.561 Pain in right knee (principal); M17.11 Unilateral primary osteoarthritis, right knee; Z91.040 Latex allergy status; Z87.891 Personal history of nicotine dependence
CPT/HCPCS: 99212; G0463

== ENCOUNTER 2017-12-31 09:48 | Emergency (ER) | payer MEDICAID, OTHER ==
--- OUTSIDE RECORDS SUMMARY | 2017-12-31 09:52 | XMS REPORT ---
:1985 External Reference #:[id number] Author Organization [employer] Address [address] [place] [address] [place] [address] Phone [phone] Care Team Providers Name Role Phone Fidelina Seymour MD Primary Care Physician Unavailable Payers Type Date Identification Numbers Payment Provider Subscriber Commercial Effective: Policy Number: [id number] [employer] Krissy Bradley 2016 Medicaid PayID: [id number] [address] [address] [place] [address] Medigap Part B Expires: 2016 Policy Number: [id number] Medicaid Krissy Bradley Group Name: 1 1 [address] PayID: [id number] [place] [address] Problems Date Description Provider Status Onset: 12/29/2017 Current tear of medial cartilage AND/OR Jaime Murrieta MD Active meniscus of knee Onset: 12/22/2017 Edema Jaime Murrieta MD Active Onset: 07/29/2016 Sprain of acromioclavicular ligament Fernanda Go MD Active Family History Date Family Member(s) Problem(s) Comments General Diabetes General Heart Disease General Stroke General Cancer General Rheumatoid Arthritis General Hypertension Social History Type Date Description Comments Lives With Children Occupation Currently Working ETOH Use Occasionally consumes alcohol Smoking Patient has never smoked Exercise Type/Frequency Exercises regularly Allergies, Adverse Reactions, Alerts Date Description Reaction Status Severity Comments 07/29/2016 NKDA active 12/22/2017 Latex active Medications Medication Date Status Form Strength Qnty SIG Indications Ordering Provider Naproxen Active Unknown Advil Active Tablets 200mg as needed Unknown Vital Signs Date Vital Result Comment 12/29/2017 Height 63 inches 5'3" Weight 235.00 lb Heart Rate 72 /min Respiratory Rate 16 /min Body Temperature 98.2 F Pain Level 0 BMI (Body Mass Index) 41.6 kg/m2 12/22/2017 Height 63 inches 5'3" Weight 235.00 lb Heart Rate 60 /min Respiratory Rate 12 /min Body Temperature 98.6 F Pain Level 4 BMI (Body Mass Index) 41.6 kg/m2 07/29/2016 Height 63 inches 5'3" Weight 231.00 lb Heart Rate 67 /min BP Systolic 115 mmHg BP Diastolic 77 mmHg Body Temperature 98.1 F Pain Level 4 BMI (Body Mass Index) 40.9 kg/m2 Results Test Date Test Result H/L Range Note Rapid Influenza A B 04/15/2013 Rapid Influenza A B (SEE NOTE) 1 Antigen Antigen 1 RUN DATE: 04/15/13 [facility] LAB LIVE PAGE 1 RUN TIME: [address] [place] [address] Specimen Inquiry Name: KRISSY BRADLEY : [address]: Jared Hodges MD Acct: [id number] Unit: [id number] AGE: 28 Location: ED Re04/15/13 SEX: F Status: REG ER SPEC: [id number] ALEXANDER: 04/15/13-[address] [facility] DR: Mariama MCKEON REQ: [id number] RECD: 04/15/13 STATUS: EBONIE CRABTREE DR: No Primary Care Phys,[facility] Jared Hodges MD _ SOURCE: [facility]: ORDERED: Rapid Flu A B Procedure Result Verified Site Rapid Influenza A B Antigen Final 04/15/13- 2242 ML Organism 1 Negative Influenza A Organism 2 Negative Influenza B Antigen testing by enzyme immunoassay. Cell culture testing can be performed to confirm negative test results and to assist in detecting other viruses that can produce similar clinical symptoms. Please notify Microbiology Lab if further testing is desired. END OF REPORT * ML=Testing performed at Main Lab DEPARTMENT OF PATHOLOGY, [address] [place] [address] Elvis Ervin M.D. Director [facility] Permit #[id number] Procedures Description No Information Encounters Type Date Location Provider CPT E/M Dx Office Visit 07/29/2016 [facility] [place] [address] S43.51xA 10:30a Kerri Plan of Care Future Appointment(s):02/09/2018 10:45 am - Jaime Murrieta MD at [facility]12/29/2017 - Jaime Murrieta, MDS83.221A Prph tear of medial meniscus, current injury, r knee, initNew Therapy:Physical TherapyFollow up: Follow Up: 6 weeks
--- OUTSIDE RECORDS SUMMARY | 2017-12-31 09:52 | XMS REPORT ---
:1985 External Reference #:[id number] Author Organization [employer] Address [address] [facility] [place] [address] [place] [address] Phone [phone] Care Team Providers Name Role Phone Fidelina Seymour MD Primary Care Physician Unavailable Payers Type Date Identification Numbers Payment Provider Subscriber Commercial Effective: Policy Number: [id number] [employer] Krissy Bradley 2016 Medicaid PayID: [id number] [address] [address] [place] [address] Medigap Part B Expires: 2016 Policy Number: [id number] Medicaid Krissy Bradley Group Name: 1 1 [address] PayID: [id number] [place] [address] Problems Date Description Provider Status Onset: 12/22/2017 Edema Jaime Murrieta MD Active [...] Unknown Vital Signs Date Vital Result Comment 12/22/2017 Height 63 inches 5'3" Weight 235.00 [...] 1 Antigen Antigen 1 RUN DATE: 04/15/13 [facility] LAB LIVE PAGE 1 RUN TIME: [address] [place] [id number] Specimen Inquiry Name: KRISSY BRADLEY : [address]: Jared Hodges MD Acct: [id number] Unit: [id number] AGE: 28 Location: ED Re04/15/13 SEX: F Status: REG ER SPEC: [id number] ALEXANDER: 04/15/13-[address]: Mariama MCKEON REQ: [id number] RECD: 04/15/13 STATUS: EBONIE CRABTREE DR: No Primary Care Phys,[facility] Jared Hodges MD _ SOURCE: [facility]: ORDERED: Rapid Flu A B Procedure Result Verified Site Rapid Influenza A B Antigen Final 04/15/13- 3 ML Organism 1 Negative Influenza A Organism 2 Negative Influenza B Antigen testing by enzyme immunoassay. Cell culture testing can be performed to confirm negative test results and to assist in detecting other viruses that can produce similar clinical symptoms. Please notify Microbiology Lab if further testing is desired. END OF REPORT * ML=Testing performed at Main Lab DEPARTMENT OF PATHOLOGY, [address] [place] [address] Elvis Ervin M.D. Director [facility] Permit #[id number] Procedures Description No Information Encounters Type Date Location Provider CPT E/M Dx Office Visit 07/29/2016 [facility] [place] [address] S43.51xA 10:30a C.M.A. Plan of Care Future Appointment(s):12/29/2017 10:45 am - Jaime Murrieta MD at [facility]/22/2017 - Jaime Murrieta, MDR60.0 Localized edemaFollow up: Follow Up: 1 week
[2017-12-31 10:21] VITALS: BP 150/103
--- NOTE | 2017-12-31 11:25 | UC ---
Dizzy HPI HPI Summary: 32-year-old woman comes to the clinic today complaining of light headedNESS. This been going on for about 3 days. There is no spinning no ear pain. She does feel sinus pressure and she does rhinorrhea. She has no change in vision or speech or any weakness or numbness. Sometimes she can feel her heartbeat but she doesn't feel that it's fast or irregular. No fevers or chills. She is on hydrochlorothiazide for blood pressure. There has been some blood in her rhinorrhea. - History Of Current Complaint Chief Complaint: UCCardiac Stated Complaint: SINUS CONGESTION Time Seen by Provider: 12/31/17 10:42 Hx Last Menstrual Period: 12/22/17 Pain Intensity: 3 - Allergies/Home Medications Allergies/Adverse Reactions: Allergies Allergy/AdvReac Type Severity Reaction Status Date / Time latex Allergy Hives Verified 12/31/17 10:21 Latex, Natural Rubber Allergy Hives Verified 12/31/17 10:21 Home Medications: Home Medications Mv-Min/Iron/Folic/Calcium/Vitk [Women's Daily Formula Tablet] 1 tab PO DAILY 07/15 [History Confirmed 12/31/17] PMH/Surg Hx/FS Hx/Imm Hx Cardiovascular History: Hypertension Other History Of: Negative For: HIV, Hepatitis B, Hepatitis C, Anticoagulant Therapy - Surgical History Surgical History: Yes Surgery Procedure, Year, and Place: SCOPING OF BLADDER A CHILD, TUBAL LIGATION - Family History Known Family History: Positive: Cardiac Disease, Hypertension, Diabetes - Social History Alcohol Use: Occasionally Substance Use Type: None Smoking Status (MU): Former Smoker Amount Used/How Often: 5 CIGARETTES PER DAY X 1 YEAR Have You Smoked in the Last Year: No When Did the Patient Quit Smoking/Using Tobacco: 2-3 YEARS AGO - Immunization History Most Recent Influenza Vaccination: fall 2016 Most Recent Tetanus Shot: 04/04/14 Most Recent Pneumonia Vaccination: none Review of Systems Constitutional: Negative Skin: Negative Eyes: Negative ENT: Nasal Discharge, Sinus Congestion, Sinus Pain/Tenderness Respiratory: Negative Cardiovascular: Other - SEE HPI Motor: Negative Neurovascular: Negative Musculoskeletal: Negative Neurological: Negative Psychological: Negative Is Patient Immunocompromised?: No All Other Systems Reviewed And Are Negative: Yes Physical Exam Triage Information Reviewed: Yes Appearance: Well-Appearing, No Pain Distress, Well-Nourished Vital Signs: Initial Vital Signs Temp 97.6 F 12/31/17 10:17 Pulse 77 12/31/17 10:17 Resp 18 12/31/17 10:17 BP 150/103 12/31/17 10:17 Pulse Ox 100 12/31/17 10:17 Vital Signs Reviewed: Yes Eye Exam: Normal Eyes: Positive: Conjunctiva Clear ENT: Positive: Nasal congestion, Nasal drainage, TMs normal Neck exam: Normal Neck: Positive: Supple Respiratory Exam: Normal Respiratory: Positive: Lungs clear, Normal breath sounds, No respiratory distress Cardiovascular: Positive: RRR Abdominal Exam: Normal Abdomen Description: Positive: Nontender Bowel Sounds: Positive: Present Musculoskeletal Exam: Normal Musculoskeletal: Positive: Strength Intact, ROM Intact Neurological Exam: Normal Neurological: Positive: Alert, Muscle Tone Normal Psychological Exam: Normal Psychological: Positive: Age Appropriate Behavior Skin Exam: Normal Diagnostics - EKG EKG Comments: AT 10:58 Cardiac Rate: NL Cardiac Rhythm: Sinus: Normal - 65BPM Ectopy: None ST Segment: Normal Dizzy Course/Dx - Course Course Of Treatment: I discussed the EKG with the patient. She's not having any vertigo symptoms at this time. We discussed treatment of her sinusitis she prefers to be on antibiotics at this time. We will also do symptomatic treatment. We discussed going to emergency department if she is concerned about her heart or any of her other concerning symptoms. At this time she prefers to not go to the emergency department. Blood work is pending. She will follow up with primary care doctor she'll go to the emergency department if she gets worse. - Differential Dx/Diagnosis Provider Diagnoses: LIGHTHEADEDNESS. SINUSITIS Discharge - Sign-Out/Discharge Documenting (check all that apply): Patient Departure All imaging exams completed and their final reports reviewed: No Studies - Discharge Plan Condition: Stable Disposition: HOME Prescriptions: Amoxicillin/Clavulanate TAB* [Augmentin TAB 875*] 875 mg PO BID #20 tab Patient Education Materials: Sinusitis (ED), Lightheadedness (ED) Referrals: Fidelina Seymour MD [Primary Care Provider] - Additional Instructions: FOLLOW UP WITH YOUR DOCTOR. GO TO THE EMERGENCY DEPARTMENT FOR ANY WORSENING OF YOUR CONDITION OR QUESTIONS OR CONCERNS. - Billing Disposition and Condition Condition: STABLE Disposition: Home
[2017-12-31 16:37] LABS: ABS Basophils 0.1 10^3/ul (0-0.2); ABS Monocytes 0.6 10^3/ul (0-0.8); ABS Neutrophils 5.7 10^3/ul (1.5-7.7); ABS Nucleated RBC 0 10^3/ul; Eosinophil % 10.5 % (0-6); Hematocrit 42 % (35-47); Hemoglobin 13.9 g/dl (12.0-16.0); Lymphocyte % 21.3 % (25-47); Mean Corpuscular HGB Conc 33 g/dl (31-36); Mean Corpuscular Hemoglobin 26 pg (27-31); Mean Corpuscular Volume 78 fL (80-97); Mean Platelet Volume 8.4 um3 (7.4-10.4); Nucleated Red Blood Cells % 0.1; Platelet Count 256 10^3/ul (150-450); Red Cell Distribution Width 16 % (10.5-15); White Blood Count 9.3 10^3/ul (3.5-10.8)
[2017-12-31 16:45] LABS: EGFR Non-African American 108.2 (>60)
== END 2017-12-31 11:47 | disposition home or self-care (01) ==
LOC: UCEAST 09:48
DX: R42 Dizziness and giddiness (principal); J32.9 Chronic sinusitis, unspecified; I10 Essential (primary) hypertension; Z91.040 Latex allergy status; Z87.891 Personal history of nicotine dependence
CPT/HCPCS: 36415; 80053; 83735; 84443; 85025; 93005; 99212; G0463